=== PATIENT | male | born 1935 | race Two or more races ===

== ENCOUNTER 2018-04-16 14:50 | Inpatient (IN) | payer MEDICARE, BC ==
[2018-04-16] MEDS ORDERED: MAGNESIUM HYDROXIDE 30ML CUP PO (16:30)
[2018-04-16] MEDS ORDERED: ALUMINUM HYDROXIDE 30 ML CUP PO (16:30)
[2018-04-16] MEDS ORDERED: BISACODYL 10 MG SUPP PR (16:30)
[2018-04-16] MEDS ORDERED: ONDANSETRON 4 MG INJ IV (16:30)
[2018-04-16] MEDS ORDERED: LACTULOSE 30ML CUP PO (16:30)
[2018-04-16] MEDS: LACTOBACILLUS RHAMNOSUS CAP PO (21:14)
[2018-04-16] MEDS: MELATONIN 5 MG TABLET PO (21:14)
[2018-04-16] MEDS: SENNA TAB PO (21:14)
[2018-04-16] MEDS: DOCUSATE SODIUM 100 MG CAP PO (21:14)
[2018-04-17 06:16] LABS: ADD MAN DIFF? NO
[2018-04-17 06:19] LABS: BASOPHILS % 0.4 % (0.0-2.0); EOSINOPHILS # 0.2 10^3/ul (0.0-0.5); HEMATOCRIT 30.1 % (42.0-52.0); HEMOGLOBIN 9.4 g/dl (14.0-18.0); LYMPHOCYTES # 1.5 10^3/ul (0.8-2.9); LYMPHOCYTES % 22.8 % (15.0-51.0); MEAN CORPUSCULAR HGB CONC 31.2 g/dl (32.0-37.0); MEAN CORPUSCULAR VOLUME 99.3 fl (82.0-101.0); MEAN PLATELET VOLUME 11.2 fl (7.4-10.4); MONOCYTE # 0.8 10^3/ul (0.3-0.9); MONOCYTES % 11.9 % (0.0-11.0); NEUTROPHIL # 4.2 10^3/ul (1.6-7.5); NEUTROPHILS % 61.6 % (39.0-77.0); PLATELET COUNT 214 10^3/UL (140-415); RED BLOOD COUNT 3.03 10^6/ul (4.70-6.10); RED CELL DISTRIBUTION WIDTH 16.3 % (11.5-14.5)
[2018-04-17 06:19] LABS: WHITE BLOOD COUNT 6.7 10^3/ul (4.8-10.8)
[2018-04-17 06:46] LABS: ALANINE AMINOTRANSFERASE 23 IU/L (13-69); ALBUMIN 2.8 g/dl (3.3-4.9); ALKALINE PHOSPHATASE 57 IU/L (42-121); ANION GAP 2 (5-13); ASPARTATE AMINO TRANSFERASE 27 IU/L (15-46); BLOOD UREA NITROGEN 21 mg/dl (7-20); CALCIUM 8.6 mg/dl (8.4-10.2); CARBON DIOXIDE 29 mmol/L (21-31); CHLORIDE 107 mmol/L (97-110); CREATININE 0.81 mg/dl (0.61-1.24); GLUCOSE 79 mg/dl (70-220); POTASSIUM 4.6 mmol/L (3.5-5.1); SODIUM 138 mmol/L (135-144); TOTAL PROTEIN 5.9 g/dl (6.1-8.1)
[2018-04-17 07:55] LABS: ADD UMIC NO; UR ASCORBIC ACID NEGATIVE (NEGATIVE); UR BILIRUBIN (Dip) NEGATIVE (NEGATIVE); UR BLOOD (Dip) NEGATIVE (NEGATIVE); UR CLARITY CLEAR (CLEAR); UR COLOR STRAW (YELLOW); UR GLUCOSE (Dip) NEGATIVE (NEGATIVE); UR KETONES (Dip) NEGATIVE (NEGATIVE); UR LEUKOCYTE ESTERASE (Dip) NEGATIVE Leu/ul (NEGATIVE); UR NITRITE (Dip) NEGATIVE (NEGATIVE); UR SPECIFIC GRAVITY (Dip) 1.003 (1.003-1.030); UR TOTAL PROTEIN (Dip) NEGATIVE (NEGATIVE); UR UROBILINOGEN (Dip) NEGATIVE (NEGATIVE)
[2018-04-17] MEDS: LACTOBACILLUS RHAMNOSUS CAP PO ×2 (09:07→20:20)
[2018-04-17] MEDS: DOCUSATE SODIUM 10 MG/ML (10ML CUP) PO ×2 (09:07→20:20)
[2018-04-17] MEDS: FAMOTIDINE 20 MG TAB PO ×2 (09:24→20:20)
[2018-04-17] MEDS: ENOXAPARIN 30 MG/0.3 ML SYG SC (09:28)
[2018-04-17 09:43] LABS: IRON 40 ug/dl (35-150)
[2018-04-17 09:52] LABS: % IRON SATURATION 17 % SAT (22-52); TOTAL IRON BINDING CAPACITY 231 ug/dl (241-421)
[2018-04-17 10:15] LABS: PROSTATE SPECIFIC ANTIGEN 0.4 ng/ml (0.0-4.0)
[2018-04-17] MEDS ORDERED: MELATONIN 5 MG TABLET PO (10:30)
[2018-04-17] MEDS: FOLIC ACID 1 MG TAB PO (12:15)
[2018-04-17] MEDS: ASCORBIC ACID 500 MG TAB PO (12:15)
[2018-04-17] MEDS: MULTIVITAMINS THERAPEUTIC TAB PO (12:16)
[2018-04-17] MEDS: SENNA TAB PO (20:20)
[2018-04-18] MEDS: FAMOTIDINE 20 MG TAB PO ×2 (08:08→20:46)
[2018-04-18] MEDS: FOLIC ACID 1 MG TAB PO (08:08)
[2018-04-18] MEDS: LACTOBACILLUS RHAMNOSUS CAP PO ×2 (08:08→20:46)
[2018-04-18] MEDS: ASCORBIC ACID 500 MG TAB PO (08:08)
[2018-04-18] MEDS: MULTIVITAMINS THERAPEUTIC TAB PO (08:08)
[2018-04-18] MEDS: DOCUSATE SODIUM 10 MG/ML (10ML CUP) PO ×3 (08:08→20:46)
[2018-04-18] MEDS: ENOXAPARIN 30 MG/0.3 ML SYG SC (08:09)
[2018-04-18] MEDS: SENNA TAB PO (20:46)
[2018-04-19] MEDS: ENOXAPARIN 30 MG/0.3 ML SYG SC (08:15)
[2018-04-19] MEDS: DOCUSATE SODIUM 10 MG/ML (10ML CUP) PO ×2 (08:16→20:17)
[2018-04-19] MEDS: FOLIC ACID 1 MG TAB PO (08:16)
[2018-04-19] MEDS: FAMOTIDINE 20 MG TAB PO ×2 (08:16→20:13)
[2018-04-19] MEDS: MULTIVITAMINS THERAPEUTIC TAB PO (08:16)
[2018-04-19] MEDS: LACTOBACILLUS RHAMNOSUS CAP PO ×2 (08:16→20:12)
[2018-04-19] MEDS: ASCORBIC ACID 500 MG TAB PO (08:16)
[2018-04-19 18:32] LABS: OCCULT BLOOD STOOL NEGATIVE (NEGATIVE)
[2018-04-19] MEDS: SENNA TAB PO (20:17)
[2018-04-20] MEDS: DOCUSATE SODIUM 10 MG/ML (10ML CUP) PO ×2 (08:52→21:00)
[2018-04-20] MEDS: LACTOBACILLUS RHAMNOSUS CAP PO ×2 (08:53→20:38)
[2018-04-20] MEDS: ASCORBIC ACID 500 MG TAB PO (08:53)
[2018-04-20] MEDS: FAMOTIDINE 20 MG TAB PO ×2 (08:53→20:38)
[2018-04-20] MEDS: FOLIC ACID 1 MG TAB PO (08:53)
[2018-04-20] MEDS: MULTIVITAMINS THERAPEUTIC TAB PO (08:53)
[2018-04-20] MEDS: ENOXAPARIN 30 MG/0.3 ML SYG SC (08:54)
[2018-04-20] MEDS: COLLAGENASE 5 GM (UD JAR) TOP (11:54)
[2018-04-20] MEDS: SENNA TAB PO (21:00)
[2018-04-21 07:18] LABS: ADD MAN DIFF? NO
[2018-04-21 07:26] LABS: WHITE BLOOD COUNT 5.3 10^3/ul (4.8-10.8)
[2018-04-21 07:26] LABS: BASOPHIL # 0.1 10^3/ul (0.0-0.1); BASOPHILS % 0.9 % (0.0-2.0); EOSINOPHILS # 0.3 10^3/ul (0.0-0.5); EOSINOPHILS % 5.3 % (0.0-7.0); HEMATOCRIT 32.9 % (42.0-52.0); HEMOGLOBIN 10.4 g/dl (14.0-18.0); LYMPHOCYTES % 37.4 % (15.0-51.0); MEAN CORPUSCULAR HEMOGLOBIN 31.4 pg (29.0-33.0); MEAN CORPUSCULAR HGB CONC 31.6 g/dl (32.0-37.0); MEAN CORPUSCULAR VOLUME 99.4 fl (82.0-101.0); MEAN PLATELET VOLUME 10.6 fl (7.4-10.4); MONOCYTE # 0.6 10^3/ul (0.3-0.9); MONOCYTES % 10.4 % (0.0-11.0); NEUTROPHIL # 2.4 10^3/ul (1.6-7.5); NEUTROPHILS % 45.8 % (39.0-77.0); PLATELET COUNT 261 10^3/UL (140-415); RED BLOOD COUNT 3.31 10^6/ul (4.70-6.10)
[2018-04-21 07:55] LABS: ANION GAP 1 (5-13); BLOOD UREA NITROGEN 22 mg/dl (7-20); CALCIUM 9.2 mg/dl (8.4-10.2); CARBON DIOXIDE 34 mmol/L (21-31); CHLORIDE 106 mmol/L (97-110); CREATININE 1.02 mg/dl (0.61-1.24); GLUCOSE 77 mg/dl (70-220); PHOSPHORUS 3.7 mg/dl (2.5-4.9); POTASSIUM 4.8 mmol/L (3.5-5.1); SODIUM 141 mmol/L (135-144)
[2018-04-21] MEDS: MULTIVITAMINS THERAPEUTIC TAB PO (08:56)
[2018-04-21] MEDS: FAMOTIDINE 20 MG TAB PO ×2 (08:56→20:47)
[2018-04-21] MEDS: LACTOBACILLUS RHAMNOSUS CAP PO ×2 (08:56→20:48)
[2018-04-21] MEDS: ASCORBIC ACID 500 MG TAB PO (08:56)
[2018-04-21] MEDS: FOLIC ACID 1 MG TAB PO (08:56)
[2018-04-21] MEDS: DOCUSATE SODIUM 10 MG/ML (10ML CUP) PO ×2 (08:57→20:50)
[2018-04-21] MEDS: ENOXAPARIN 30 MG/0.3 ML SYG SC (09:04)
[2018-04-21] MEDS: SOD FERRIC GLUC COMPLX 125 MG in SOD CHLORIDE 0.9% 100 ML IVPB (12:31)
[2018-04-21] MEDS: COLLAGENASE 5 GM (UD JAR) TOP (12:49)
[2018-04-21] MEDS: SENNA TAB PO (20:48)
[2018-04-22] MEDS: FAMOTIDINE 20 MG TAB PO ×2 (08:56→20:55)
[2018-04-22] MEDS: DOCUSATE SODIUM 10 MG/ML (10ML CUP) PO ×2 (08:56→21:00)
[2018-04-22] MEDS: MULTIVITAMINS THERAPEUTIC TAB PO (08:56)
[2018-04-22] MEDS: FOLIC ACID 1 MG TAB PO (08:56)
[2018-04-22] MEDS: LACTOBACILLUS RHAMNOSUS CAP PO ×2 (08:56→20:55)
[2018-04-22] MEDS: ASCORBIC ACID 500 MG TAB PO (08:56)
[2018-04-22] MEDS: COLLAGENASE 5 GM (UD JAR) TOP (08:57)
[2018-04-22] MEDS: ENOXAPARIN 30 MG/0.3 ML SYG SC (09:06)
[2018-04-22] MEDS: SOD FERRIC GLUC COMPLX 125 MG in SOD CHLORIDE 0.9% 100 ML IVPB (13:28)
[2018-04-22] MEDS: SENNA TAB PO (21:00)
[2018-04-23 06:21] LABS: ADD MAN DIFF? NO
[2018-04-23 06:31] LABS: WHITE BLOOD COUNT 5.3 10^3/ul (4.8-10.8)
[2018-04-23 06:31] LABS: BASOPHILS % 0.8 % (0.0-2.0); EOSINOPHILS # 0.3 10^3/ul (0.0-0.5); EOSINOPHILS % 6.1 % (0.0-7.0); HEMATOCRIT 29.1 % (42.0-52.0); HEMOGLOBIN 9.3 g/dl (14.0-18.0); LYMPHOCYTES # 1.8 10^3/ul (0.8-2.9); LYMPHOCYTES % 33.2 % (15.0-51.0); MEAN CORPUSCULAR HEMOGLOBIN 31.8 pg (29.0-33.0); MEAN CORPUSCULAR VOLUME 99.7 fl (82.0-101.0); MONOCYTE # 0.7 10^3/ul (0.3-0.9); MONOCYTES % 12.3 % (0.0-11.0); NEUTROPHIL # 2.5 10^3/ul (1.6-7.5); NEUTROPHILS % 47.2 % (39.0-77.0); PLATELET COUNT 220 10^3/UL (140-415); RED BLOOD COUNT 2.92 10^6/ul (4.70-6.10); RED CELL DISTRIBUTION WIDTH 17.1 % (11.5-14.5)
[2018-04-23 07:00] LABS: ANION GAP 7 (5-13); BLOOD UREA NITROGEN 35 mg/dl (7-20); CALCIUM 8.7 mg/dl (8.4-10.2); CARBON DIOXIDE 29 mmol/L (21-31); CHLORIDE 104 mmol/L (97-110); GLUCOSE 77 mg/dl (70-220); MAGNESIUM 1.8 mg/dl (1.7-2.5); PHOSPHORUS 3.4 mg/dl (2.5-4.9); POTASSIUM 4.2 mmol/L (3.5-5.1); SODIUM 140 mmol/L (135-144)
[2018-04-23] MEDS: DOCUSATE SODIUM 10 MG/ML (10ML CUP) PO ×2 (07:55→21:00)
[2018-04-23] MEDS: FOLIC ACID 1 MG TAB PO (08:36)
[2018-04-23] MEDS: FAMOTIDINE 20 MG TAB PO ×2 (08:36→20:45)
[2018-04-23] MEDS: MULTIVITAMINS THERAPEUTIC TAB PO (08:36)
[2018-04-23] MEDS: ASCORBIC ACID 500 MG TAB PO (08:36)
[2018-04-23] MEDS: LACTOBACILLUS RHAMNOSUS CAP PO ×2 (08:36→20:45)
[2018-04-23] MEDS: ENOXAPARIN 30 MG/0.3 ML SYG SC (08:37)
[2018-04-23] MEDS: COLLAGENASE 5 GM (UD JAR) TOP (08:38)
[2018-04-23] MEDS: SOD FERRIC GLUC COMPLX 125 MG in SOD CHLORIDE 0.9% 100 ML IVPB (13:21)
[2018-04-23] MEDS: SENNA TAB PO (21:00)
[2018-04-24] MEDS: COLLAGENASE 5 GM (UD JAR) TOP (08:22)
[2018-04-24] MEDS: FAMOTIDINE 20 MG TAB PO ×2 (08:23→20:21)
[2018-04-24] MEDS: MULTIVITAMINS THERAPEUTIC TAB PO (08:23)
[2018-04-24] MEDS: ASCORBIC ACID 500 MG TAB PO (08:23)
[2018-04-24] MEDS: LACTOBACILLUS RHAMNOSUS CAP PO ×2 (08:23→20:21)
[2018-04-24] MEDS: FOLIC ACID 1 MG TAB PO (08:23)
[2018-04-24] MEDS: ENOXAPARIN 30 MG/0.3 ML SYG SC (08:24)
[2018-04-24] MEDS: DOCUSATE SODIUM 10 MG/ML (10ML CUP) PO ×2 (08:26→20:44)
[2018-04-24] MEDS: SOD FERRIC GLUC COMPLX 125 MG in SOD CHLORIDE 0.9% 100 ML IVPB (13:06)
[2018-04-24] MEDS: SENNA TAB PO (20:44)
[2018-04-25 07:07] LABS: ADD MAN DIFF? NO
[2018-04-25 07:15] LABS: BASOPHIL # 0.1 10^3/ul (0.0-0.1); BASOPHILS % 0.6 % (0.0-2.0); EOSINOPHILS # 0.4 10^3/ul (0.0-0.5); EOSINOPHILS % 4.3 % (0.0-7.0); HEMATOCRIT 33.9 % (42.0-52.0); HEMOGLOBIN 10.6 g/dl (14.0-18.0); LYMPHOCYTES # 1.6 10^3/ul (0.8-2.9); LYMPHOCYTES % 18.9 % (15.0-51.0); MEAN CORPUSCULAR HEMOGLOBIN 31.8 pg (29.0-33.0); MEAN CORPUSCULAR HGB CONC 31.3 g/dl (32.0-37.0); MEAN CORPUSCULAR VOLUME 101.8 fl (82.0-101.0); MEAN PLATELET VOLUME 11.8 fl (7.4-10.4); MONOCYTE # 0.7 10^3/ul (0.3-0.9); MONOCYTES % 8.2 % (0.0-11.0); NEUTROPHIL # 5.8 10^3/ul (1.6-7.5); NEUTROPHILS % 67.9 % (39.0-77.0); PLATELET COUNT 172 10^3/UL (140-415); RED BLOOD COUNT 3.33 10^6/ul (4.70-6.10); RED CELL DISTRIBUTION WIDTH 17.7 % (11.5-14.5)
[2018-04-25 07:15] LABS: WHITE BLOOD COUNT 8.6 10^3/ul (4.8-10.8)
[2018-04-25 08:19] LABS: ANION GAP 8 (5-13); BLOOD UREA NITROGEN 27 mg/dl (7-20); CALCIUM 9.4 mg/dl (8.4-10.2); CARBON DIOXIDE 26 mmol/L (21-31); CHLORIDE 107 mmol/L (97-110); CREATININE 0.78 mg/dl (0.61-1.24); GLUCOSE 75 mg/dl (70-220); MAGNESIUM 2.1 mg/dl (1.7-2.5); PHOSPHORUS 3.7 mg/dl (2.5-4.9); SODIUM 141 mmol/L (135-144)
[2018-04-25] MEDS: DOCUSATE SODIUM 10 MG/ML (10ML CUP) PO ×2 (09:00→20:28)
[2018-04-25] MEDS: MULTIVITAMINS THERAPEUTIC TAB PO (09:08)
[2018-04-25] MEDS: COLLAGENASE 5 GM (UD JAR) TOP (09:24)
[2018-04-25] MEDS: FAMOTIDINE 20 MG TAB PO ×2 (09:25→20:29)
[2018-04-25] MEDS: ASCORBIC ACID 500 MG TAB PO (09:25)
[2018-04-25] MEDS: FOLIC ACID 1 MG TAB PO (09:25)
[2018-04-25] MEDS: LACTOBACILLUS RHAMNOSUS CAP PO ×2 (09:25→20:29)
[2018-04-25] MEDS: ENOXAPARIN 30 MG/0.3 ML SYG SC (09:33)
[2018-04-25 12:34] LABS: PLATELET COUNT 77 10^3/UL (140-415)
[2018-04-25 12:39] LABS: INR 1.03; PROTIME 13.6 Sec (11.9-14.9); PT RATIO 1.1
[2018-04-25 12:41] LABS: PARTIAL THROMBOPLASTIN TIME 54.1 Sec (23.0-35.0); THROMBIN TIME 21.2 SEC (13.8-19.1)
[2018-04-25] MEDS: SOD FERRIC GLUC COMPLX 125 MG in SOD CHLORIDE 0.9% 100 ML IVPB (13:22)
[2018-04-25] MEDS: SENNA TAB PO (20:29)
[2018-04-26] MEDS: DOCUSATE SODIUM 10 MG/ML (10ML CUP) PO ×2 (09:00→20:31)
[2018-04-26] MEDS: FAMOTIDINE 20 MG TAB PO ×2 (09:47→20:25)
[2018-04-26] MEDS: ASCORBIC ACID 500 MG TAB PO (09:48)
[2018-04-26] MEDS: LACTOBACILLUS RHAMNOSUS CAP PO ×2 (09:48→20:25)
[2018-04-26] MEDS: FOLIC ACID 1 MG TAB PO (09:48)
[2018-04-26] MEDS: MULTIVITAMINS THERAPEUTIC TAB PO (09:48)
[2018-04-26] MEDS: COLLAGENASE 5 GM (UD JAR) TOP (09:48)
[2018-04-26] MEDS: SENNA TAB PO (20:31)
[2018-04-27] MEDS: FOLIC ACID 1 MG TAB PO (09:20)
[2018-04-27] MEDS: DOCUSATE SODIUM 10 MG/ML (10ML CUP) PO ×2 (09:21→21:00)
[2018-04-27] MEDS: MULTIVITAMINS THERAPEUTIC TAB PO (09:21)
[2018-04-27] MEDS: COLLAGENASE 5 GM (UD JAR) TOP (09:21)
[2018-04-27] MEDS: LACTOBACILLUS RHAMNOSUS CAP PO ×2 (09:21→20:46)
[2018-04-27] MEDS: ASCORBIC ACID 500 MG TAB PO (09:21)
[2018-04-27] MEDS: FAMOTIDINE 20 MG TAB PO ×2 (09:21→20:46)
[2018-04-27 09:31] LABS: ADD MAN DIFF? NO
[2018-04-27 09:34] LABS: WHITE BLOOD COUNT 8.9 10^3/ul (4.8-10.8)
[2018-04-27 09:34] LABS: BASOPHILS % 0.3 % (0.0-2.0); EOSINOPHILS # 0.2 10^3/ul (0.0-0.5); EOSINOPHILS % 2.1 % (0.0-7.0); HEMATOCRIT 36.9 % (42.0-52.0); HEMOGLOBIN 11.7 g/dl (14.0-18.0); LYMPHOCYTES # 1.5 10^3/ul (0.8-2.9); LYMPHOCYTES % 16.8 % (15.0-51.0); MEAN CORPUSCULAR HEMOGLOBIN 32.2 pg (29.0-33.0); MEAN CORPUSCULAR HGB CONC 31.7 g/dl (32.0-37.0); MEAN CORPUSCULAR VOLUME 101.7 fl (82.0-101.0); MEAN PLATELET VOLUME 11.2 fl (7.4-10.4); MONOCYTE # 0.5 10^3/ul (0.3-0.9); MONOCYTES % 6.1 % (0.0-11.0); NEUTROPHIL # 6.6 10^3/ul (1.6-7.5); NEUTROPHILS % 74.2 % (39.0-77.0); PLATELET COUNT 222 10^3/UL (140-415); RED BLOOD COUNT 3.63 10^6/ul (4.70-6.10); RED CELL DISTRIBUTION WIDTH 17.4 % (11.5-14.5)
[2018-04-27] MEDS ORDERED: VITAMIN A & D 5 GM OINT PACKET TOP (15:00)
[2018-04-27] MEDS: SENNA TAB PO (21:00)
[2018-04-28] MEDS: LACTOBACILLUS RHAMNOSUS CAP PO ×2 (08:54→20:32)
[2018-04-28] MEDS: FOLIC ACID 1 MG TAB PO (08:54)
[2018-04-28] MEDS: ASCORBIC ACID 500 MG TAB PO (08:54)
[2018-04-28] MEDS: MULTIVITAMINS THERAPEUTIC TAB PO (08:54)
[2018-04-28] MEDS: FAMOTIDINE 20 MG TAB PO ×2 (08:54→20:32)
[2018-04-28] MEDS: COLLAGENASE 5 GM (UD JAR) TOP (08:55)
[2018-04-28] MEDS: ENOXAPARIN 30 MG/0.3 ML SYG SC (08:56)
[2018-04-28] MEDS: DOCUSATE SODIUM 10 MG/ML (10ML CUP) PO ×2 (09:00→20:39)
[2018-04-28] MEDS: SENNA TAB PO (20:39)
[2018-04-29] MEDS: ASCORBIC ACID 500 MG TAB PO (08:42)
[2018-04-29] MEDS: LACTOBACILLUS RHAMNOSUS CAP PO ×2 (08:42→20:48)
[2018-04-29] MEDS: MULTIVITAMINS THERAPEUTIC TAB PO (08:42)
[2018-04-29] MEDS: FAMOTIDINE 20 MG TAB PO ×2 (08:42→20:48)
[2018-04-29] MEDS: FOLIC ACID 1 MG TAB PO (08:42)
[2018-04-29] MEDS: ENOXAPARIN 30 MG/0.3 ML SYG SC (08:44)
[2018-04-29] MEDS: DOCUSATE SODIUM 10 MG/ML (10ML CUP) PO ×2 (08:47→20:28)
[2018-04-29] MEDS ORDERED: BARIUM SULFATE 135 ML (E-Z HD) PO (11:24)
[2018-04-29] MEDS: SENNA TAB PO (20:28)
[2018-04-29] MEDS: ACETAMINOPHEN 325 MG TAB PO (21:12)
[2018-04-30] MEDS: FAMOTIDINE 20 MG TAB PO ×2 (08:56→20:30)
[2018-04-30] MEDS: ENOXAPARIN 30 MG/0.3 ML SYG SC (08:56)
[2018-04-30] MEDS: FOLIC ACID 1 MG TAB PO (08:56)
[2018-04-30] MEDS: ASCORBIC ACID 500 MG TAB PO (08:56)
[2018-04-30] MEDS: LACTOBACILLUS RHAMNOSUS CAP PO ×2 (08:56→20:29)
[2018-04-30] MEDS: MULTIVITAMINS THERAPEUTIC TAB PO (08:56)
[2018-04-30] MEDS: NEOMYC/POLYMYX/BACIT 30 GM OINT TOP (08:56)
[2018-04-30] MEDS: DOCUSATE SODIUM 10 MG/ML (10ML CUP) PO ×2 (08:59→20:35)
[2018-04-30] MEDS: SENNA TAB PO (20:35)
[2018-05-01] MEDS: FOLIC ACID 1 MG TAB PO (08:29)
[2018-05-01] MEDS: MULTIVITAMINS THERAPEUTIC TAB PO (08:29)
[2018-05-01] MEDS: FAMOTIDINE 20 MG TAB PO (08:29)
[2018-05-01] MEDS: ASCORBIC ACID 500 MG TAB PO (08:29)
[2018-05-01] MEDS: ENOXAPARIN 30 MG/0.3 ML SYG SC (08:33)
[2018-05-01] MEDS: NEOMYC/POLYMYX/BACIT 30 GM OINT TOP (09:00)
[2018-05-01] MEDS: LACTOBACILLUS RHAMNOSUS CAP PO (09:00)
[2018-05-01] MEDS: DOCUSATE SODIUM 10 MG/ML (10ML CUP) PO (09:00)
== END 2018-05-01 16:00 | DRG 92 ==
LOC: VRC 14:50
PROC: F07Z5ZZ Bed Mobility Treatment (ICD-10-PCS; principal; 2018-04-16)
PROC: F08Z2ZZ Grooming/Personal Hygiene Treatment (ICD-10-PCS; 2018-04-16)
PROC: F06Z6ZZ Communicative/Cognitive Integration Skills Treatment (ICD-10-PCS; 2018-04-16)
DX: G92 Toxic encephalopathy (principal); N17.9 Acute kidney failure, unspecified; E46 Unspecified protein-calorie malnutrition; Z68.1 Body mass index [BMI] 19.9 or less, adult; J90 Pleural effusion, not elsewhere classified; F03.90 Unspecified dementia, unspecified severity, without behavioral disturbance, psychotic disturbance, mood disturbance, and anxiety; R13.10 Dysphagia, unspecified; L53.8 Other specified erythematous conditions; I49.9 Cardiac arrhythmia, unspecified; K59.00 Constipation, unspecified; R79.89 Other specified abnormal findings of blood chemistry; R53.81 Other malaise; B35.1 Tinea unguium; D50.9 Iron deficiency anemia, unspecified; R91.8 Other nonspecific abnormal finding of lung field; G47.00 Insomnia, unspecified
CPT/HCPCS: 71045; 71250; 74230; 80048; 80053; 81003; 82270; 82728; 83540; 83735; 84100; 84153; 84154; 85025; 85049; 85610; 85670; 85730; 87081; 87086; 92507; 92523; 92526; 92610; 92611; 97110; 97112; 97116; 97163; 97165; 97530; 97535; 97542